=== PATIENT | female | born 1980 ===

== ENCOUNTER 2017-06-17 15:14 | Emergency (ER) | payer BC ==
[2017-06-17 15:31] VITALS: BP 101/68
--- NOTE | 2017-06-17 15:47 | UC ---
Syncope/New Syncope HPI - HPI Summary HPI Summary: near syncope x 3 over the past 5 days + fatigue, headaches , no dizziness, no lightheaded, no fever, no chills - History Of Current Complaint Chief Complaint: UCGeneralIllness Stated Complaint: LIGHTHEADED Time Seen by Provider: 06/17/17 15:35 Hx Obtained From: Patient Hx Last Menstrual Period: 06/16/17 Onset/Duration: Gradual Onset, Lasting Days - 5, Still Present Activity At Onset: Unknown Timing: Intermittent Episode Lasting Frequency: Episodes x___ - 3, Episodes Lasting ____ (in Mins/Days/Weeks/Years) - 1 min Context: Unwitnessed Associated Head Trauma: No Aggravating Factor(s): Nothing Alleviating Factor(s): Nothing Associated Signs And Symptoms: Negative: AMS, Chest Pain, Decreased Oral Intake , Diarrhea, Diaphoresis, Dizzy, GI Blood Loss, Head Trauma (Remote), Head Trauma (Recent), Lightheadedness, Numbness, Pain, Palpitations, Seizure, Shortness Of Breath, Vomiting, Weakness - Allergies/Home Medications Allergies/Adverse Reactions: Allergies Allergy/AdvReac Type Severity Reaction Status Date / Time Codeine AdvReac GI Upset Verified 06/17/17 15:31 Home Medications: Home Medications Ferrous Sulfate [Iron (Ferrous Sulfate)] 65 mg PO DAILY 06/17/17 [History Confirmed 06/17/17] Magnesium Oxide (mg Supplement [Magnesium] 500 mg PO DAILY 06/17/17 [History Confirmed 06/17/17] PMH/Surg Hx/FS Hx/Imm Hx Neurological History: Migraine - Surgical History Surgical History: Yes Surgery Procedure, Year, and Place: CLEFT PALATE REPAIR - Family History Known Family History: Positive: Diabetes - Social History Alcohol Use: Rare Substance Use Type: None Smoking Status (MU): Current Every Day Smoker Type: Cigarettes Amount Used/How Often: 3/4 PPD Length of Time of Smoking/Using Tobacco: 13 YRS Review of Systems Constitutional: Negative Skin: Negative Eyes: Negative ENT: Negative Respiratory: Negative Neurological: Headache All Other Systems Reviewed And Are Negative: Yes Physical Exam Triage Information Reviewed: Yes Appearance: Well-Appearing, No Pain Distress, Well-Nourished Vital Signs: Initial Vital Signs Temp 99.4 F 06/17/17 15:21 Pulse 75 06/17/17 15:21 Resp 16 06/17/17 15:21 BP 101/68 06/17/17 15:21 Pulse Ox 99 06/17/17 15:21 Vital Signs Reviewed: Yes Eyes: Positive: Conjunctiva Clear ENT: Positive: Normal ENT inspection, Hearing grossly normal, Pharynx normal, TMs normal. Negative: Pharyngeal erythema, Nasal congestion, Nasal drainage Neck: Positive: Supple, Nontender, No Lymphadenopathy Respiratory: Positive: Chest non-tender, Lungs clear, Normal breath sounds Cardiovascular: Positive: RRR, No Murmur, Pulses Normal Abdominal Exam: Normal Abdomen Description: Positive: Nontender, Soft Bowel Sounds: Positive: Present Neurological Exam: Normal Neurological: Positive: Alert, Muscle Tone Normal Psychological Exam: Normal Skin Exam: Normal UC Physical Exam Vital Signs On Initial Exam: Initial Vitals Temp Pulse Resp BP Pulse Ox 99.4 F 75 16 101/68 99 06/17/17 15:21 06/17/17 15:21 06/17/17 15:21 06/17/17 15:21 06/17/17 15:21 - Neurological Exam Neurological: Normal, Sensory/Motor Intact, Alert, Oriented to Person Place, Time, CN Intact II-III, Normal Gait, Speech Normal Syncope Course/Dx - Differential Dx/Diagnosis Provider Diagnoses: near syncope Discharge - Discharge Plan Condition: Stable Disposition: HOME Patient Education Materials: Near Syncope (ED) Referrals: Fausto Lyn MD [Primary Care Provider] - 5 Days
[2017-06-17 20:06] LABS: Hematocrit 40 % (35-47); Hemoglobin 13.4 g/dl (12.0-16.0); Mean Corpuscular HGB Conc 34 g/dl (31-36); Mean Corpuscular Hemoglobin 33 pg (27-31); Mean Corpuscular Volume 97 fL (80-97); Mean Platelet Volume 10 um3 (7.4-10.4); Red Blood Count 4.07 10^6/ul (4.0-5.4); Red Cell Distribution Width 13 % (10.5-15); White Blood Count 7.4 10^3/ul (3.5-10.8)
[2017-06-17 20:24] LABS: Albumin 4.1 g/dL (3.2-5.2); BUN/Creatinine Ratio 12.8 (8-20); Calcium 9.4 mg/dL (8.6-10.3); EGFR African American 106.9 (>60); EGFR Non-African American 83.1 (>60); Globulin 2.5 g/dL (2-4); Potassium 4.3 mmol/L (3.5-5.0); Total Bilirubin 0.5 mg/dL (0.2-1.0); Total Protein 6.6 g/dL (6.4-8.9)
[2017-06-17 21:15] LABS: TSH (Thyroid Stimulating Horm) 0.72 mcIU/mL (0.34-5.60)
--- NOTE | 2017-06-18 07:49 | ED ---
Progress - Progress Note Progress Note: cbc/cmp normal. Course/Dx - Diagnoses Provider Diagnoses: Dizziness
== END 2017-06-17 15:57 | disposition home or self-care (01) ==
LOC: UCCORT 15:14
DX: R55 Syncope and collapse (principal); R53.83 Other fatigue; R51 Headache; Z88.5 Allergy status to narcotic agent; F17.210 Nicotine dependence, cigarettes, uncomplicated
CPT/HCPCS: 36415; 80053; 84443; 85025; 99211; G0463

== ENCOUNTER 2018-04-13 12:07 | Emergency (ER) | payer BC, OTHER ==
[2018-04-13 12:40] VITALS: BP 102/65
--- NOTE | 2018-04-13 12:55 | UC ---
Ear Complaint HPI - HPI Summary HPI Summary: Pt c/o right ear popping and "fullness" X 2 days. Pt has URI symptoms. - History of Current Complaint Chief Complaint: UCEar Stated Complaint: RT EAR COMPLAINT Time Seen by Provider: 04/13/18 12:49 Hx Obtained From: Patient Hx Last Menstrual Period: 03/18/18 ?: No Onset/Duration: Sudden Onset, Lasting Days, Still Present Severity Initially: Mild Severity Currently: Mild Pain Intensity: 5 Associated Signs/Symptoms: Positive: Hearing Loss, URI Symptoms - Allergies/Home Medications Allergies/Adverse Reactions: Allergies Allergy/AdvReac Type Severity Reaction Status Date / Time codeine Allergy GI Upset Verified 04/13/18 12:34 PMH/Surg Hx/FS Hx/Imm Hx Previously Healthy: Yes - Surgical History Surgical History: Yes Surgery Procedure, Year, and Place: CLEFT PALATE REPAIR. c- section. lithotripsy - Family History Known Family History: Positive: Cardiac Disease, Diabetes - Social History Occupation: Employed Full-time Lives: With Family Alcohol Use: Rare Substance Use Type: None Smoking Status (MU): Heavy Every Day Tobacco Smoker Type: Cigarettes Amount Used/How Often: 3/4 PPD Length of Time of Smoking/Using Tobacco: 13 YRS Have You Smoked in the Last Year: Yes Review of Systems Constitutional: Negative Skin: Negative Eyes: Negative ENT: Ear Ache, Sinus Congestion Respiratory: Negative Cardiovascular: Negative Gastrointestinal: Negative Genitourinary: Negative Motor: Negative Neurovascular: Negative Musculoskeletal: Negative Neurological: Negative Psychological: Negative Is Patient Immunocompromised?: No All Other Systems Reviewed And Are Negative: Yes Physical Exam Triage Information Reviewed: Yes Appearance: Well-Appearing Vital Signs: Initial Vital Signs Temp 98.5 F 04/13/18 12:35 Pulse 96 04/13/18 12:35 Resp 16 04/13/18 12:35 BP 102/65 04/13/18 12:35 Pulse Ox 100 04/13/18 12:35 Vital Signs Reviewed: Yes Eye Exam: Normal ENT: Positive: TM bulging Dental Exam: Normal Neck exam: Normal Respiratory Exam: Normal Cardiovascular Exam: Normal Musculoskeletal Exam: Normal Neurological Exam: Normal Psychological Exam: Normal Skin Exam: Normal Ear Complaint Course/Dx - Differential Dx/Diagnosis Differential Diagnosis/HQI/PQRI: Otitis Media, URI Provider Diagnoses: right serous otitis. URI Discharge - Sign-Out/Discharge Documenting (check all that apply): Discharge/Admit/Transfer - Discharge Plan Condition: Stable Disposition: HOME Prescriptions: Fluticasone NASAL SPRAY 50MCG* [Flonase NASAL SPRAY 50MCG*] 2 spray BOTH NARES DAILY #1 btl Guaifenesin/Pseudoephedrne HCl [Mucinex D ER 1,200-120 mg Tab] 1 each PO DAILY # 7 tab Patient Education Materials: Serous Otitis Media (ED) Referrals: VIANCA Ramirez [Primary Care Provider] - - Billing Disposition and Condition Condition: STABLE Disposition: HOME
== END 2018-04-13 13:03 | disposition home or self-care (01) ==
LOC: UCCORT 12:07
DX: H65.91 Unspecified nonsuppurative otitis media, right ear (principal); J06.9 Acute upper respiratory infection, unspecified; F17.210 Nicotine dependence, cigarettes, uncomplicated
CPT/HCPCS: 99212; G0463

== ENCOUNTER 2019-01-23 10:12 | Emergency (ER) | payer OTHER ==
[2019-01-23 10:39] VITALS: BP 115/60
--- NOTE | 2019-01-23 11:06 | UC ---
UC General HPI - HPI Summary HPI Summary: per triage, Continued cough, chest congestion, and upset stomach since having "the flu" last week. Patient's son tested positive and patient had flu like symptoms. no cp, asthma, copd. - History of Current Complaint Chief Complaint: UCRespiratory Stated Complaint: COUGH,NAUSEA Time Seen by Provider: 01/23/19 10:36 Hx Obtained From: Patient Hx Last Menstrual Period: "about three weeks [ago]" Timing: Constant Pain Intensity: 0 Associated Signs & Symptoms: Positive: Cough, Nausea - Allergy/Home Medications Allergies/Adverse Reactions: Allergies Allergy/AdvReac Type Severity Reaction Status Date / Time codeine AdvReac GI Upset Verified 01/23/19 10:35 Home Medications: Home Medications GuaiFENesin DM* [Robitussin DM*] 10 ml PO Q6H PRN 01/23/19 [History Confirmed ] PMH/Surg Hx/FS Hx/Imm Hx Previously Healthy: Yes - Surgical History Surgical History: Yes Surgery Procedure, Year, and Place: CLEFT PALATE REPAIR. c- section. lithotripsy - Family History Known Family History: Positive: Cardiac Disease, Diabetes - Social History Lives: With Family Alcohol Use: Rare Substance Use Type: None Smoking Status (MU): Heavy Every Day Tobacco Smoker Type: Cigarettes Amount Used/How Often: 3/4 PPD Length of Time of Smoking/Using Tobacco: Since Age 22 Have You Smoked in the Last Year: Yes Review of Systems All Other Systems Reviewed And Are Negative: Yes Constitutional: Positive: Negative Skin: Positive: Negative Eyes: Positive: Negative ENT: Positive: Negative Respiratory: Positive: Cough Cardiovascular: Positive: Negative Gastrointestinal: Positive: Nausea Genitourinary: Positive: Negative Motor: Positive: Negative Neurovascular: Positive: Negative Musculoskeletal: Positive: Negative Neurological: Positive: Negative Psychological: Positive: Negative Physical Exam Triage Information Reviewed: Yes Appearance: Well-Appearing Vital Signs: Initial Vital Signs Temp 98 F 01/23/19 10:36 Pulse 72 01/23/19 10:36 Resp 16 01/23/19 10:36 BP 115/60 01/23/19 10:36 Pulse Ox 99 01/23/19 10:36 Vital Signs Reviewed: Yes Eyes: Positive: Conjunctiva Clear ENT: Positive: Pharynx normal, TMs normal. Negative: Nasal congestion, Nasal drainage Neck: Positive: Supple, Nontender, No Lymphadenopathy Respiratory: Positive: No respiratory distress, Decreased breath sounds Cardiovascular: Positive: RRR, No Murmur Abdomen Description: Positive: Nontender, No Organomegaly, Soft Bowel Sounds: Positive: Present Musculoskeletal: Positive: ROM Intact Neurological: Positive: Alert Psychological: Positive: Age Appropriate Behavior Skin Exam: Normal Diagnostics - Radiology No standard instances Radiology Interpretation Completed By: Radiologist - CXR=NO ACTIVE CARDIOPULMONARY DISEASE. Re-Evaluation - Re-Evaluation First Eval Re-Evaluation Time: 11:30 Change: Unchanged - BS ARE THE SAME AND PT FEELS NO DIFFERENT Course/Dx - Course Course Of Treatment: NO INFILTRATE ON CXR. CONGESTED COUGH POST INFLUENZA S/S'S THAT IS PERSISTENT AND WORSE AT NIGHT. WILL TX PO STEROID AND CLOSE F/U PCP. - Differential Dx - Multi-Symptom Differential Diagnoses: Other - PNEUMONIA, BRONCHITIS, RAD, NO CONCERN FOR pe - Diagnoses Provider Diagnosis: Cough in adult patient Discharge - Sign-Out/Discharge Documenting (check all that apply): Patient Departure All imaging exams completed and their final reports reviewed: Yes - Discharge Plan Condition: Stable Disposition: HOME Prescriptions: predniSONE [Prednisone 20 MG TAB] 40 mg PO DAILY 5 Days #10 tablet Patient Education Materials: Acute Cough (ED) Referrals: VIANCA Ramirez [Primary Care Provider] - 5 Days - Billing Disposition and Condition Condition: STABLE Disposition: Home - Attestation Statements Provider Attestation: Per institutional requirements, I have reviewed the chart, however, I was not consulted specifically or made aware of this patient by the midlevel provider. I did not personally evaluate, interact with , or disposition this patient.
[2019-01-23] MEDS ORDERED: Albuterol 2.5 MG/3 ML NEB.SOL* (0.083%) INH ONE (11:10)
== END 2019-01-23 11:43 | disposition home or self-care (01) ==
LOC: UCCORT 10:12
DX: R05 Cough (principal); R09.89 Other specified symptoms and signs involving the circulatory and respiratory systems; K30 Functional dyspepsia; R11.0 Nausea; F17.210 Nicotine dependence, cigarettes, uncomplicated; Z88.5 Allergy status to narcotic agent
CPT/HCPCS: 71046; 99212; G0463